=== PATIENT | female | born 1965 | race American Indian/Alaskan Native ===

== ENCOUNTER 2018-01-08 12:43 | Emergency (ER) | payer SELFPAY ==
[2018-01-08 13:04] VITALS: BP 155/84
[2018-01-08] MEDS ORDERED: TYLENOL ONE (13:08)
== END 2018-01-08 18:37 | disposition left against medical advice (07) ==
LOC: ED 12:43
DX: S81.819A Laceration without foreign body, unspecified lower leg, initial encounter (principal); Z53.21 Procedure and treatment not carried out due to patient leaving prior to being seen by health care provider